=== PATIENT | female | born 1985 | race Hispanic/Latino ===

== ENCOUNTER 2017-04-14 18:16 | Emergency (ER) | payer MEDICARE ==
[2017-04-14 21:27] LABS: Basophils % (Auto) 0.3 % (0.0-1.8); Eosinophils # (Auto) 0.1 K/mm3 (0.0-0.4); Eosinophils % (Auto) 1.2 % (0.0-4.3); Hematocrit 45.9 % (30.3-42.9); Hemoglobin 15.6 gm/dl (10.1-14.3); Lymphocytes # (Auto) 1.9 K/mm3 (1.2-5.4); Lymphocytes % (Auto) 19.7 % (13.4-35.0); Mean Corpuscular HGB Conc 34 % (30-34); Mean Corpuscular Hemoglobin 31 pg (28-32); Mean Corpuscular Volume 92 fl (79-97); Monocytes # (Auto) 0.5 K/mm3 (0.0-0.8); Platelet Count 284 K/mm3 (140-440); Red Blood Count 4.99 M/mm3 (3.65-5.03); Red Cell Distribution Width 13.4 % (13.2-15.2)
[2017-04-14 21:39] LABS: BUN/Creatinine Ratio 16; Blood Urea Nitrogen 8 mg/dL (7-17); Calcium 9.8 mg/dL (8.4-10.2); Hemolysis Index 9
--- NOTE | 2017-04-14 22:56 | Emergency Department Report ---
HPI - General Chief Complaint: Abdominal Pain Time Seen by Provider: 04/14/17 22:36 - HPI HPI: 31-year-old female comes in for abdominal cramping and nausea vomiting. Patient reports that she is not weeks and was seen by her OB /DEV MANAGER doctor today. Patient reports that she had labs done on Monday and Monday and was seen today and discussed her levels were decreasing. Patient reports that she is not having any pelvic pain now she only vomited twice today and she still has a little nausea. She is also reports that she's been complaining of itching and feels like her skin is crawling she reports she's been off her medication for 8 weeks. Patient reports that she is on antianxiety medicine and anti-depression medicine. ED Past Medical Hx - Past Medical History Previous Medical History?: Yes Additional medical history: anxiety, depression - Social History Smoking Status: Never Smoker ED Review of Systems ROS: Stated complaint: ABDOMINAL PAIN Other details as noted in HPI Constitutional: denies: chills, fever Eyes: denies: eye pain, eye discharge, vision change ENT: denies: ear pain, throat pain Respiratory: denies: cough, shortness of breath, wheezing Cardiovascular: denies: chest pain, palpitations Endocrine: no symptoms reported Gastrointestinal: denies: abdominal pain, nausea, diarrhea Genitourinary: denies: urgency, dysuria, discharge Musculoskeletal: denies: back pain, joint swelling, arthralgia Skin: denies: rash, lesions Neurological: denies: headache, weakness, paresthesias Psychiatric: anxiety, depression Hematological/Lymphatic: denies: easy bleeding, easy bruising Physical Exam - Physical Exam Vital Signs: Vital Signs 04/14/17 18:20 Temperature 97.3 F L Pulse Rate 73 Respiratory 16 Rate Blood Pressure 107/80 O2 Sat by Pulse 100 Oximetry Physical Exam: GENERAL: Alert and oriented x3, no apparent distress, Normal Gait, atraumatic. HEAD: Head is normocephalic and a-traumatic. EYES: Extra ocular muscles are intact. Pupils are equal, round, and reactive to light and accommodation. NOSE: Nose symetrical, Nontender,Nares appeared normal. MOUTH:Mouth is well hydrated and without lesions. Tonsils nonerythematous or swollen, Uvula midline, Tongue not elevated. Mucous membranes are moist. Posterior pharynx clear, no exudate or lesions. Patent airways. NECK: Supple. Non edematous, No carotid bruits. No lymphadenopathy or thyromegaly. LUNGS: Symetrical with respiration, No wheezing, no rales or crackles, CTAB. HEART: S1, S2 present, regular rate and rhythm without murmur, no rubs, no gallops. ABDOMEN: No organomegaly was noted,Positive bowel sounds, soft, and non- distended. . Nontender to palpation on all Quadrants, NO CVA tenderness. EXTREMITIES/MUSCULOSKELETAL: No cyanosis, clubbing, rash, lesions or edema. Full ROM bilaterally. UE/LE Pulses 2+ bilaterally. LE and UE 5+ strength bilaterally NEUROLOGIC: No focal Deficit, Cranial nerves II through XII are grossly intact. No loss of sensation, No facial droop, PSYCHIATRIC: Mood is congruent with affect, denies suicidal or homicidal ideations. SKIN: Warm and dry, No lesions, No ulceration or induration present ED Course Vital Signs 04/14/17 18:20 Temperature 97.3 F L Pulse Rate 73 Respiratory 16 Rate Blood Pressure 107/80 O2 Sat by Pulse 100 Oximetry ED Medical Decision Making - Lab Data Result diagrams: 04/14/17 21:09 04/14/17 21:09 Critical care attestation.: If time is entered above; I have spent that time in minutes in the direct care of this critically ill patient, excluding procedure time. ED Disposition Clinical Impression: Qualifiers: Weeks of gestation: 11 weeks Qualified Code(s): Z3A.11 - 11 weeks gestation of Disposition: DC-01 TO HOME OR SELFCARE Is pt being admited?: No Does the pt Need Aspirin: No Condition: Stable Instructions: Abdominal Pain (ED) Additional Instructions: Please follow-up with your OB provider. You can take Tylenol for any pain. Referrals: PRIMARY CAREMD [Primary Care Provider] - 3-5 Days CARLOS EDUARDO GAVIN MD [Staff Physician] - 3-5 Days Forms: Accompanied Note
[2017-04-15 00:56] VITALS: BP 145/87
== END 2017-04-15 00:58 | disposition home or self-care (01) ==
LOC: ED 18:16
DX: O21.9 Vomiting of pregnancy, unspecified (principal); Z3A.11 11 weeks gestation of pregnancy; F32.9 Major depressive disorder, single episode, unspecified; F41.9 Anxiety disorder, unspecified; Z88.2 Allergy status to sulfonamides; Z88.8 Allergy status to other drugs, medicaments and biological substances
CPT/HCPCS: 36415; 80048; 84702; 84703; 85025; 99283

== ENCOUNTER 2017-04-18 13:58 | Day surgery (SDC) | payer MEDICARE ==
--- NOTE | 2017-04-18 15:05 | Anesthesia Consultation ---
Anesthesia Consult and Med Hx Date of service: 04/18/17 - Airway Anesthetic Teeth Evaluation: Good ROM Head & Neck: Adequate Mental/Hyoid Distance: Adequate Mallampati Class: Class II Intubation Access Assessment: Probably Good - Pulmonary Exam CTA: Yes - Cardiac Exam Cardiac Exam: RRR - Pre-Operative Health Status ASA Pre-Surgery Classification: ASA2 Proposed Anesthetic Plan: General - Pulmonary Hx Smoking: No Hx Asthma: Yes (had asthma as a child - grew out of it) Hx Sleep Apnea: No - Central Nervous System Hx Psychiatric Problems: Yes (anxiety, depression) - Hematic Hx Anemia: No - Other Systems Hx Alcohol Use: No Hx Substance Use: No Hx Cancer: No
--- NOTE | 2017-04-18 15:05 | Anesthesia Day of Surgery ---
Anesthesia Day of Surgery - Day of Surgery Patient Examined: Yes Patient H&P Reviewed: Yes Patient is NPO: Yes
--- NOTE | 2017-04-18 15:36 | Short Stay Summary ---
Short Stay Documentation Date of service: 04/18/17 Narrative H&P: Pt is a 31yo WF LMP 02/07/17 presents for a D&C due to IUFD @ 8 weeks. - History Principal diagnosis: Missed H&P: obtained from office Past Medical History: No medical history Past Surgical History: No surgical history Social history: no significant social history, - Allergies and Medications Current Medications: Allergies cephalexin [From Keflex] Allergy (Verified 04/18/17 14:18) lips Swelling sulfamethoxazole [From Bactrim] Allergy (Verified 04/18/17 14:18) Hives trimethoprim [From Bactrim] Allergy (Verified 04/18/17 14:18) Hives Home Medications Medication Instructions Recorded Confirmed Last Taken Type Docusate Sodium [Colace] 100 mg PO BID PRN 04/18/17 04/18/17 04/17/17 History Fluvoxamine Maleate [Fluvoxamine 100 mg PO BID 04/18/17 04/18/17 04/17/17 History Maleate] Haloperidol [Haldol] 1 mg PO QHS 04/18/17 04/18/17 04/17/17 History Vit-Fe Fumar-FA [ 1 tab PO QDAY 04/18/17 04/18/17 04/17/17 History Vitamin] Sertraline [Zoloft] 100 mg PO QHS 04/18/17 04/18/17 04/17/17 History clonazePAM [clonazePAM] 0.25 mg PO BID 04/18/17 04/18/17 04/17/17 History Active Medications Famotidine (Pepcid) 20 mg PO PREOP NR Stop: 04/18/17 23:00 Last Admin: 04/18/17 15:24 Dose: 20 mg Lactated Ringer's (Lactated Ringers) 1,000 mls @ 100 mls/hr IV DIRECT WANG Last Admin: 04/18/17 15:26 Dose: 100 mls/hr Midazolam HCl (Versed) 2 mg IV PREOP NR Stop: 04/18/17 23:59 Ondansetron HCl (Zofran) 4 mg IV ONCE NR Stop: 04/18/17 23:59 Last Admin: 04/18/17 15:35 Dose: 4 mg - Physical exam General appearance: no acute distress Integumentary: no rash HEENT: Atraumatic Lungs: Clear to auscultation Breasts: deferred Heart: Regular rate Gastrointestinal: normal Female Genitourinary: deferred Rectal Exam: deferred Extremities: no ischemia Neurological: Normal speech - Brief post op/procedure progress note Date of procedure: 04/18/17 Pre-op diagnosis: 1.IUFD @ 8 weeks 2. Missed Post-op diagnosis: same Procedure: D&C Anesthesia: MAC Findings: An 8 weeks size uterus with moderate amounts of POC Surgeon: CARLOS EDUARDO GAVIN Estimated blood loss: 50-100ml Pathology: list (POC) Specimen disposition: to lab Condition: stable - Hospital course Hospital course: Unremarkable. - Disposition Condition at discharge: Good Disposition: DC- TO HOME OR SELFCARE - Discharge Diagnoses (1) IUFD at less than 20 weeks of gestation Status: Acute (2) Missed with demise before 20 completed weeks of gestation Status: Acute Short Stay Discharge Plan Activity: no restrictions Diet: regular Follow up with: STERLING MILLER MD [Primary Care Provider] - 7 Days CARLOS EDUARDO GAVIN MD [Staff Physician] - 14 Days Prescriptions: Doxycycline [Vibramycin CAP] 100 mg PO Q12HR #14 capsule Ibuprofen [Motrin] 800 mg PO Q8HR PRN #30 tablet PRN Reason: Pain, Moderate (4-6) Methylergonovine [Methergine] 0.2 mg PO Q8HR #6 tablet
[2017-04-18 15:44] LABS: Hematocrit 41.7 % (30.3-42.9); Hemoglobin 14.5 gm/dl (10.1-14.3)
[2017-04-18] MEDS ORDERED: GARAMYCIN IV SCH (15:45)
[2017-04-18] MEDS ORDERED: DIPRIVAN 10 MG/ML IV ONE (15:58)
[2017-04-18] MEDS ORDERED: DILAUDID ONE (15:58)
[2017-04-18] MEDS ORDERED: XYLOCAINE MPF 2% ONE (15:59)
[2017-04-18] MEDS ORDERED: CLEOCIN 600 MG/50 mL 600 MG/50 ML BAG IV NR (16:00)
[2017-04-18] MEDS ORDERED: ZOFRAN IV NR (16:00)
[2017-04-18] MEDS ORDERED: PEPCID PO NR (16:00)
[2017-04-18] MEDS ORDERED: LACTATED RINGERS 1,000 ML IV SCH (16:00)
[2017-04-18] MEDS ORDERED: VERSED IV NR (16:00)
[2017-04-18] MEDS ORDERED: ZOFRAN IV ONE (16:00)
[2017-04-18] MEDS ORDERED: ZOFRAN ONE (16:42)
[2017-04-18] MEDS ORDERED: TORADOL ONE (16:42)
[2017-04-18] MEDS ORDERED: NACL 0.9% IR ONE (16:50)
--- NOTE | 2017-04-18 16:56 | Operative Report ---
Operative Report Operative Report: PREOPERATIVE DIAGNOSIS: 1. Intrauterine demise at 8 weeks 2. Missed POSTOPERATIVE DIAGNOSIS: Same OPERATIVE PROCEDURE: Dilatation and curettage. SURGEON: Carlos Interiano MD ANESTHESIA: Gen. mask ANESTHESIOLOGIST: Dr. Cespedes ESTIMATED BLOOD LOSS: 50 mL FINDINGS: An 8 week size uterus with moderate amounts of products of conception COMPLICATIONS: None COUNTS: Correct x3. PROCEDURE: After the patient was correctly identified as the patient, and after general anesthesia was administered, the patient was prepped and draped in the usual sterile fashion and placed in dorsal lithotomy position. First, the bladder was emptied using a straight catheter. Next, a speculum was placed in the vaginal vault and the anterior lip of the cervix was grasped using a single-tooth tenaculum. The uterus was sounded to 8 cm. The cervical os was sequentially dilated, and a 8 mm vaccurette was used to suction blood and products of conception from the uterine cavity. After all the products of conception were removed, the procedure was considered complete. All instruments were removed from the vagina. The patient tolerated the procedure well and was transferred to the recovery room in stable condition.
[2017-04-18] MEDS ORDERED: GARAMYCIN/NS 120MG/100ML 120 MG/100 ML BAG IV SCH (17:00)
[2017-04-18 17:41] VITALS: BP 108/66
[2017-04-18] MEDS ORDERED: PHENERGAN PO PRN (18:21)
== END 2017-04-18 18:40 | disposition home or self-care (01) ==
LOC: OR 13:58
PROVIDERS: ATTEND Obstetrics & Gynecology
DX: O02.1 Missed abortion (principal); J45.909 Unspecified asthma, uncomplicated; F41.9 Anxiety disorder, unspecified; F32.9 Major depressive disorder, single episode, unspecified; Z88.1 Allergy status to other antibiotic agents; Z88.2 Allergy status to sulfonamides
CPT/HCPCS: 36415; 59820; 85014; 85018; 86850; 86900; 86901; 88305; J1170; J1580; J1885; J2250; J2405; J2704; J7120; Q0169

== ENCOUNTER 2017-08-10 13:13 | Emergency (ER) | payer MEDICARE ==
--- NOTE | 2017-08-10 14:51 | Emergency Department Report ---
Blank Doc - Documentation Documentation: 31-year-old female presents to the hospital COPD with cramps, vaginal bleeding, and approximately 6 weeks . Patient has not had a ultrasound on examination and was confirmed via blood testing. She [facility] PR[facility] OPERATOR is Dr. Carlos Interiano. She was seen in the BIOMEDICAL EQUIPMENT SPECIALIST office prior to arrival and advised to come to the ER for evaluation. Patient had been spotting but had a gush of blood today. Took Tylenol prior to arrival for cramping. Patient is tearful and upset because it is her second and she just had a miscarriage requiring D&C in March of this year. labs US pending [facility] to follow Notify Dr April Interiano after results obtained
[2017-08-10 15:11] LABS: Basophils % (Auto) 0.3 % (0.0-1.8); Eosinophils # (Auto) 0.2 K/mm3 (0.0-0.4); Eosinophils % (Auto) 2.9 % (0.0-4.3); Hematocrit 43.9 % (30.3-42.9); Hemoglobin 14.8 gm/dl (10.1-14.3); Lymphocytes # (Auto) 1.4 K/mm3 (1.2-5.4); Lymphocytes % (Auto) 20.2 % (13.4-35.0); Mean Corpuscular HGB Conc 34 % (30-34); Mean Corpuscular Hemoglobin 31 pg (28-32); Mean Corpuscular Volume 93 fl (79-97); Monocytes # (Auto) 0.3 K/mm3 (0.0-0.8); Monocytes % (Auto) 4.3 % (0.0-7.3); Platelet Count 274 K/mm3 (140-440); Red Blood Count 4.72 M/mm3 (3.65-5.03); Red Cell Distribution Width 12.7 % (13.2-15.2)
--- NOTE | 2017-08-10 15:31 | Emergency Department Report ---
<NORA STOUT - Last Filed: 08/10/17 17:53> ED Female HPI - General Chief complaint: Vaginal Bleeding Stated complaint: 5 TO 6 WKS PREG/VAG BLEEDING Time Seen by Provider: 08/10/17 14:40 - Related Data Home Medications Medication Instructions Recorded Confirmed Last Taken Docusate Sodium [Colace] 100 mg PO BID PRN 04/18/17 04/18/17 04/17/17 Fluvoxamine Maleate 100 mg PO BID 04/18/17 04/18/17 04/17/17 Haloperidol [Haldol] 1 mg PO QHS 04/18/17 04/18/17 04/17/17 Vit-Fe Fumar-FA [ 1 tab PO QDAY 04/18/17 04/18/17 04/17/17 Vitamin] Sertraline [Zoloft] 100 mg PO QHS 04/18/17 04/18/17 04/17/17 clonazePAM 0.25 mg PO BID 04/18/17 04/18/17 04/17/17 Previous Rx's Medication Instructions Recorded Last Taken Type Doxycycline [Vibramycin CAP] 100 mg PO Q12HR #14 capsule 04/18/17 Unknown Rx Ibuprofen [Motrin] 800 mg PO Q8HR PRN #30 tablet 04/18/17 Unknown Rx Methylergonovine [Methergine] 0.2 mg PO Q8HR #6 tablet 04/18/17 Unknown Rx Allergies Allergy/AdvReac Type Severity Reaction Status Date / Time cephalexin [From Keflex] Allergy lips Verified 04/18/17 14:18 Swelling sulfamethoxazole Allergy Hives Verified 04/18/17 14:18 [From Bactrim] trimethoprim [From Bactrim] Allergy Hives Verified 04/18/17 14:18 ED Review of Systems ROS: Stated complaint: 5 TO 6 WKS PREG/VAG BLEEDING Other details as noted in HPI ED Past Medical Hx - Medications Home Medications: Home Medications Medication Instructions Recorded Confirmed Last Taken Type Docusate Sodium [Colace] 100 mg PO BID PRN 04/18/17 04/18/17 04/17/17 History Doxycycline [Vibramycin CAP] 100 mg PO Q12HR #14 capsule 04/18/17 Unknown Rx Fluvoxamine Maleate 100 mg PO BID 04/18/17 04/18/17 04/17/17 History Haloperidol [Haldol] 1 mg PO QHS 04/18/17 04/18/17 04/17/17 History Ibuprofen [Motrin] 800 mg PO Q8HR PRN #30 tablet 04/18/17 Unknown Rx Methylergonovine [Methergine] 0.2 mg PO Q8HR #6 tablet 04/18/17 Unknown Rx Vit-Fe Fumar-FA [ 1 tab PO QDAY 04/18/17 04/18/17 04/17/17 History Vitamin] Sertraline [Zoloft] 100 mg PO QHS 04/18/17 04/18/17 04/17/17 History clonazePAM 0.25 mg PO BID 04/18/17 04/18/17 04/17/17 History ED Course Vital Signs 08/10/17 13:33 Temperature 98.6 F Pulse Rate 74 Respiratory 16 Rate Blood Pressure 106/71 O2 Sat by Pulse 96 Oximetry - Consultations Consultation #1: 08/10/17 17:[address] Interiano on-call [facility] [employer] at [facility]. Beta hCG Quant is trending downward from last reported value of 100 and is currently 6. Ultrasound does not show any acute abnormalities. Bleeding is decreased and currently spotting. Agrees this patient is likely having a miscarriage and needs follow-up in the office to continue to trend downward hCG. ED Medical Decision Making - Lab Data Result diagrams: 08/10/17 14:54 Critical care attestation.: If time is entered above; I have spent that time in minutes in the direct care of this critically ill patient, excluding procedure time. ED Disposition Clinical Impression: Spontaneous , Low maternal serum human chorionic gonadotropin (hCG), Vaginal bleeding Abdominal pain Qualifiers: Abdominal location: lower abdomen, unspecified Qualified Code(s): R10.30 - Lower abdominal pain, unspecified Disposition: DC- TO HOME OR SELFCARE Condition: Stable Instructions: Spontaneous Miscarriage (ED), Abdominal Pain (ED) Additional Instructions: Please follow up with Dr. Interiano your CRISIS INTERVENTION COUNSELOR on 08/14/2017 for recheck of the hormone. Develop, fever, increase in bleeding, chills, increased abdominal pain, back pain, nausea or vomiting, vaginal discharge, fever and/or chills please return to the emergency room [facility] Referrals: CARLOS INTERIANO MD [Staff Physician] - 08/14/17 Forms: Accompanied Note <MAUREEN HUERTA - Last Filed: 08/10/17 18:28> ED Female HPI - General Source: patient, family Mode of arrival: Ambulatory Limitations: No Limitations - History of Present Illness Initial comments: 31-year-old female presents to the hospital COPD with cramps, vaginal bleeding, and approximately 6 weeks . Patient has not had a ultrasound on examination and was confirmed via blood testing. She follows this [facility] CRISIS INTERVENTION COUNSELOR is Dr. Carlos Interiano. She was seen in the [employer] office prior to arrival and advised to come to the ER for evaluation. Patient had been spotting but had a gush of blood today. Took Tylenol prior to arrival for cramping. Patient is tearful and upset because it is her second and she just had a miscarriage requiring D&C in March of this year. MD Complaint: vaginal bleeding, pelvic pain Onset/Timin -: days(s) Location: suprapubic Severity: mild Severity scale (0 -10): 1 Quality: cramping Consistency: intermittent Improves with: none Worsens with: none Are you Now?: Yes Last Menstrual Period: 02/07/17 EDC: 11/14/17 Associated Symptoms: vaginal bleeding, abdominal pain. denies: vaginal discharge, nausea/vomiting, fever/chills, headaches, loss of appetite, dysuria, hematuria, rash, seizure, shortness of breath, syncope, weakness - Related Data Sexually active: Yes ED Review of Systems Constitutional: denies: chills, fever Eyes: denies: eye pain ENT: denies: ear pain, throat pain, congestion Respiratory: denies: cough, shortness of breath, SOB with exertion, SOB at rest , stridor, wheezing Cardiovascular: denies: chest pain, palpitations, edema, syncope Gastrointestinal: abdominal pain. denies: nausea, vomiting Genitourinary: other (vaginal bleed and). denies: urgency, dysuria, frequency, hematuria, discharge Musculoskeletal: denies: back pain, joint swelling, arthralgia Skin: denies: rash, lesions Neurological: denies: headache, weakness ED Past Medical Hx - Past Medical History Previous Medical History?: Yes Hx GERD: Yes (during ) Hx Asthma: Yes (had asthma as a child - grew out of it) Hx HIV: No Additional medical history: anxiety, depression - Surgical History Past Surgical History?: Yes Additional Surgical History: D and C Tonsilectomy - Family History Family history: hypertension - Social History Smoking Status: Never Smoker Substance Use Type: None ED Physical Exam - General Limitations: No Limitations General appearance: alert, in no apparent distress - Head Head exam: Present: atraumatic, normocephalic, normal inspection - Eye Eye exam: Present: normal appearance, PERRL, EOMI. Absent: nystagmus, periorbital swelling, periorbital tenderness Pupils: Present: normal accommodation - ENT ENT exam: Present: normal exam, normal orophraynx, mucous membranes moist, TM's normal bilaterally, normal external ear exam - Neck Neck exam: Present: normal inspection, full ROM. Absent: tenderness, meningismus, lymphadenopathy - Respiratory Respiratory exam: Present: normal lung sounds bilaterally. Absent: respiratory distress, chest wall tenderness, accessory muscle use - Cardiovascular Cardiovascular Exam: Present: regular rate, normal rhythm, normal heart sounds. Absent: systolic murmur, diastolic murmur - GI/Abdominal GI/Abdominal exam: Present: soft, normal bowel sounds. Absent: distended, tenderness, guarding, rebound, rigid, organomegaly, mass, bruit, pulsatile mass , hernia - External exam: Present: normal external exam, bleeding (Scant noted on pad). Absent: erythema, swelling, lesions, lacerations, ecchymosis - Extremities Exam Extremities exam: Present: normal inspection, full ROM, normal capillary refill , other (no clubbing, cyanosis or edema. +2 pulses all extremities and no neurovascular compromise). Absent: tenderness, pedal edema, joint swelling, calf tenderness - Back Exam Back exam: Present: normal inspection, full ROM, other (ambulance without any difficulties). Absent: tenderness, CVA tenderness (R), CVA tenderness (L), muscle spasm, paraspinal tenderness, vertebral tenderness, rash noted - Neurological Exam Neurological exam: Present: alert, oriented X3, normal gait - Psychiatric Psychiatric exam: Present: normal affect, normal mood - Skin Skin exam: Present: warm, dry, intact, normal color. Absent: rash ED Course - Reevaluation(s) Reevaluation #1: 08/10/17 16:33 Patient is tearful and awaiting ultrasound results. Lab was reviewed and her quantitative hCG is less than 7 and apparently last week he was at [address] Interiano's office. Awaiting results to talk with patient. Reevaluation #2: 08/10/17 17:40 Still awaiting an ultrasound to speak with patient. I spoke with Dr. Interiano who wants to be called back when ultrasound results are back Reevaluation #3: 08/10/17 18:11 I spoke with patient regarding in diagnosis of miscarriage and she is very tearful. Emotional support given and also her family is at her bedside. She is aware that she is to follow up with CRISIS INTERVENTION COUNSELOR in Monday to get repeat quantitative hCG level. ED Medical Decision Making - Lab Data Result diagrams: 08/10/17 14:54 Lab Results 08/10/17 08/10/17 08/10/17 Range/Units 14:54 14:54 14:54 WBC 6.8 (4.5-11.0) K/mm3 RBC 4.72 (3.65-5.03) M/mm3 Hgb 14.8 H (10.1-14.3) gm/dl Hct 43.9 H (30.3-42.9) % MCV 93 (79-97) fl MCH 31 (28-32) pg MCHC 34 (30-34) % RDW 12.7 L (13.2-15.2) % Plt Count 274 (140-440) K/mm3 Lymph % (Auto) 20.2 (13.4-35.0) % [place] % (Auto) 4.3 (0.0-7.3) % Eos % (Auto) 2.9 (0.0-4.3) % Baso % (Auto) 0.3 (0.0-1.8) % Lymph # 1.4 (1.2-5.4) K/mm3 [place] # 0.3 (0.0-0.8) K/mm3 Eos # 0.2 (0.0-0.4) K/mm3 Baso # 0.0 (0.0-0.1) K/mm3 Seg Neutrophils % 72.3 H (40.0-70.0) % Seg Neutrophils # 4.9 (1.8-7.7) K/mm3 HCG, Quant 6.95 H (0-4) mIU/mL Blood Type A POSITIVE Antibody Screen Negative - Radiology Data Radiology results: report reviewed (miscarriage, threatened miscarriage, ectopic ,) Ultrasound transabdominal and transvaginal OB reveals no intrauterine gestation identified. May reflect very early gestation versus spontaneous with small amount of blood or fluid within the cervix. Left ovarian cyst. This was dictated by radiologist and reviewed by myself. Patient: INOCENCIA JUÁREZ MR#: [id number] : 1985 Acct:[id number] Age/Sex: 31 / F ADM Date: 08/10/17 Loc: ED Attending Dr: Ordering Physician: NORA STOUT MD Date of Service: 08/10/17 Procedure(s): US OB transvaginal Accession Number(s): [id number] cc: NORA STOUT MD FINAL REPORT EXAM: US OB TRANSVAGINAL HISTORY: vag bleeding, TECHNIQUE: PRIORS: None. FINDINGS: The uterus measures 7.2 x 3.2 x 5.1 centimeters Endometrial thickness is 0.37 centimeters. No gestational sac is identified within the uterus. There is some hypoechoic material within cervix which may reflect small amount blood or fluid. Right ovary 3.2 x 1.8 x 1.3 centimeters Left ovary 3.4 x 2.7 x 3.2 centimeters. There is a 1.9 centimeter left ovarian cyst which appears thick walled. IMPRESSION: No intrauterine gestation identified. May reflect very early gestation versus spontaneous AB with small amount of blood or fluid within the cervix Transcribed By: ELIANE Dictated By: CONOR VERGARA MD Electronically Authenticated By: CONOR VERGARA MD Signed Date/Time: 08/10/171738 DD/ 38 TD/TT: 08/10/171738 - Medical Decision Making ED course This is a 31-year-old female who presents to the hospital for vaginal bleed in at 5 weeks and 3 days . She's been followed by some outside [facility] CRISIS INTERVENTION COUNSELOR and was last seen there today and they sent her to the hospital. Patient says she had some spotting and then she left and then she had large amount of vaginal bleeding and now she is back to spotting. She is here to be evaluated. Patient had spontaneous with D&C in March 2017. She was evaluated by myself and she had small amount of blood externally on her pad. No abdominal tenderness. CBC is stable and that type is A+. Ultrasound OB Ultrasound transabdominal and transvaginal OB reveals no intrauterine gestation identified. May reflect very early gestation versus spontaneous with small amount of blood or fluid within the cervix. Left ovarian cyst. Quantitative hCG below 7 and patient reported that it was 108 last week. This was dictated by radiologist and reviewed by myself. This is communicated to Dr. Interiano CRISIS INTERVENTION COUNSELOR and he wants patient to follow-up in CRISIS INTERVENTION COUNSELOR office on Monday for repeat hormone tests. I also spoke with patient and family regarding i diagnosis, ultrasound results and laboratory results. She is very tearful and her family is there for emotional support. A/P 1: Spontaneous -ultrasound OB reveals no intrauterine gestation and hCG is dropping per CRISIS INTERVENTION COUNSELOR. Today is less than 7.-Patient is tearful but results. 2: Ovarian cyst-to follow up with CRISIS INTERVENTION COUNSELOR 3: Abdominal cramping-patient reports that she is not having any cramping at present. Patient discharged home with her family in stable condition with instructions on diagnosis, follow-up, laboratory results and ultrasound results. She voiced understanding. Discharged home to follow-up with her CRISIS INTERVENTION COUNSELOR on 01/14/2018 for repeat hCG testing. I also informed her that if she develops increased abdominal pain, fever, chills, nausea and vomiting , vaginal discharge to return to the Hospital [facility] otherwise follow up with CRISIS INTERVENTION COUNSELOR. Her and her finally voiced understanding. Patient vital signs are stable and she is a febrile - Differential Diagnosis ,spontaneous , threatened , ED Disposition Is pt being admited?: No Does the pt Need Aspirin: No
--- NOTE | 2017-08-10 17:43 | Ultrasound Report ---
FINAL REPORT EXAM: US OB TRANSVAGINAL HISTORY: vag bleeding, TECHNIQUE: PRIORS: None. FINDINGS: The uterus measures 7.2 x 3.2 x 5.1 centimeters Endometrial thickness is 0.37 centimeters. No gestational sac is identified within the uterus. There is some hypoechoic material within cervix which may reflect small amount blood or fluid. Right ovary 3.2 x 1.8 x 1.3 centimeters Left ovary 3.4 x 2.7 x 3.2 centimeters. There is a 1.9 centimeter left ovarian cyst which appears thick walled. IMPRESSION: No intrauterine gestation identified. May reflect very early gestation versus spontaneous AB with small amount of blood or fluid within the cervix
--- NOTE | 2017-08-10 17:43 | Ultrasound Report ---
FINAL REPORT EXAM: US OB < = 14 WEEKS FETUS HISTORY: vag bleeding, TECHNIQUE: Ultrasound obstetrical transabdominal PRIORS: None. FINDINGS: The uterus measures 7.2 x 3.2 x 5.1 centimeters Endometrial thickness is 0.37 centimeters. No gestational sac is identified within the uterus. There is some hypoechoic material within cervix which may reflect small amount blood or fluid. Right ovary 3.2 x 1.8 x 1.3 centimeters Left ovary 3.4 x 2.7 x 3.2 centimeters. There is a 1.9 centimeter left ovarian cyst which appears thick walled. IMPRESSION: No intrauterine gestation identified. May reflect very early gestation versus spontaneous AB with small amount of blood or fluid within the cervix
[2017-08-10 18:38] VITALS: BP 130/82
== END 2017-08-10 18:36 | disposition home or self-care (01) ==
LOC: ED 13:13
DX: O03.9 Complete or unspecified spontaneous abortion without complication (principal); O02.81 Inappropriate change in quantitative human chorionic gonadotropin (hCG) in early pregnancy; R10.30 Lower abdominal pain, unspecified; Z3A.01 Less than 8 weeks gestation of pregnancy
CPT/HCPCS: 36415; 76801; 76817; 84702; 85025; 86850; 86900; 86901